=== PATIENT | female | born 1980 | race Caucasian/White ===

== ENCOUNTER 2018-11-30 08:35 | Outpatient (CLI) | payer BC, OTHER ==
[~2018-11-30] VITALS: Ht 160 cm; Wt 77.4 kg
[~2018-11-30 08:35] MED LIST: FERR27TA; PREN1TAB49
[2018-11-30 08:48] VITALS: Ht 160 cm; Wt 77.4 kg
--- NOTE | 2018-11-30 14:40 | PN ---
Triage Information Date/Time November 30, 2018 Reason for visit: Weeks of Gestation 32 weeks and 1 day /Para 4 para 3 Diabetes: none Hypertention: none Additional information 37-year-old with IUP at 32 weeks and 1 day presented with complaint of flu type symptoms. She complained of headache and congestion. Symptoms are started since last week. Increased. Reports headache, denies any cough. Denies any leaking of fluid, vaginal bleeding decreased movement or contractions. Reports pressure in her sinuses especially in the left side. Complaint of PND Objective Heart Rate: 130's Contractions: None Exam General appearance: Alert and oriented x4 does not appear to be in any acute distress Abdomen: Soft, gravid, fundal height consider gestational age HEENT: Tenderness over palpation of maxillary sinus more in the left side noted Evidence of rhinitis noted Lungs: Clear to auscultation bilaterally Oxygen saturation was normal limits NST: Category 1 BPP: 04/12 PAULINA: 8.8 Results/Medications Results 24 hrs Laboratory Tests Test 11/30/18 08:24 Urine Color YELLOW Urine Clarity CLEAR Urine pH 6.0 Urine Specific [place] 1.018 Urine Ketones NEGATIVE Urine Nitrite NEGATIVE Urine Bilirubin NEGATIVE Urine Urobilinogen NEGATIVE Urine Leukocyte Esterase NEGATIVE Urine Hemoglobin NEGATIVE Urine Glucose NEGATIVE Urine Total Protein NEGATIVE Imaging Results PROCEDURE: US OB biophysical profile. CLINICAL INDICATION: decreased movements, cough TECHNIQUE: Multiple sonographic images of the pelvis were obtained. The images were reviewed on a PACS workstation. COMPARISON: No prior studies are available for comparison. FINDINGS: There is a single live intrauterine gestation. Cardiac activity is present with 136 beats per minute. There is a vertex presentation. The placenta is anterior. There is no evidence of placental abruption. There is a normal amount of amniotic fluid with an PAULINA = 8.8 cm. Biophysical profile: movement 2/2 tone 2/2. breathing 2/2 PAULINA 2/2 Total 04/12 RPTAT: AA . IMPRESSION: Normal biophysical profile. Disposition: Discharge Assessment/Plan IUP at 32 weeks and 1 day URI symptoms as well as sinusitis. No evidence of labor or PPROM testing reassuring Patient will be discharged home Prescription with Benadryl, Tylenol, Robitussin, amoxicillin prescribed Strict labor precautions and kick count and follow-up within 24-48 hours with primary OB office discussed with patient Advised the patient to return to triage or emergency room if she has any fever, chills, worsening of her headache and symptoms or for any other concerns She verbalized understanding. All questions were answered to patient's best satisfaction ANNELIESE LONG MD Nov 30, 2018 14:40
== END 2018-11-30 09:50 | disposition home or self-care (01) ==
LOC: OBT 08:35 → L-D 08:35 → OBT 09:50
PROVIDERS: ATTEND Obstetrics & Gynecology
DX: O98.513 Other viral diseases complicating pregnancy, third trimester (principal); J06.9 Acute upper respiratory infection, unspecified; J32.9 Chronic sinusitis, unspecified; Z3A.32 32 weeks gestation of pregnancy
CPT/HCPCS: 76818; 81003; Z7500; G0463

== ENCOUNTER 2019-01-17 09:20 | Inpatient (IN) | payer OTHER ==
[~2019-01-17] VITALS: Ht 160 cm; Wt 79.6 kg
[2019-01-17] MEDS: LACTATED RINGER'S 1,000 ML IV SCH ×3 (10:28→16:52)
[2019-01-17] MEDS ORDERED: CARBOPROST 250 MCG INJ IM PRN ×2 (10:30→18:30)
[2019-01-17] MEDS ORDERED: MISOPROSTOL 200 MCG TAB PR PRN ×2 (10:30→18:30)
[2019-01-17] MEDS ORDERED: OXYTOCIN 30 UNITS/LR 500 ML IV PRN ×2 (10:30→18:30)
[2019-01-17] MEDS ORDERED: CEFAZOLIN 2 GM/50 ML (PMX) 50 ML IVPB SCH (10:30)
[2019-01-17] MEDS ORDERED: METHYLERGONOVINE 0.2 MG INJ IM PRN ×2 (10:30→18:30)
[2019-01-17 10:40] VITALS: Ht 160 cm; Wt 79.6 kg
[2019-01-17] MEDS ORDERED: OXYTOCIN 30 UNITS/LR 500 ML IV SCH ×2 (11:30→18:17)
--- NOTE | 2019-01-17 13:12 | PREOPHP ---
DATE OF ADMISSION: 01/17/2019 HISTORY OF PRESENT ILLNESS: This is a 38-year-old lady, 5, para 3 with 1 ectopic , EDC of 01/23/2019 at 39 and 2/7 weeks, admitted to labor and delivery area for repeat . She had care in my [place] office and the care was uneventful. PAST PERSONAL HISTORY: No history of diabetes, TB, asthma. ALLERGIES: NO ALLERGIES. SOCIAL HISTORY: The patient does not smoke. She does not drink. MEDICATIONS: She does not take any drugs except her: 1. Iron. 2. Vitamins. GYNECOLOGICAL HISTORY: She had menarche at the age of 14, every 28 days interval, 3 to 4 days durati on and moderate in amount. OBSTETRICAL HISTORY: Noncontributory. She is 5, para 3. She had 2 normal deliveries, the f irst 2; the last 1 was by . She had 1 ectopic . REVIEW OF SYSTEMS: CARDIOVASCULAR: No chest pains. RESPIRATORY: No cough. GASTROINTESTINAL: No diarrhea, no vomiting. GENITOURINARY: No dysuria. PHYSICAL EXAMINATION: GENERAL: Reveals a conscious, coherent lady and in no acute distress. VITAL SIGNS: Blood pressure 120/80, pulse rate 80 per minute, respirations 16 per minute. BREASTS, HEART AND LUNGS: Within normal limits. ABDOMEN: Soft. Fundic height 38 cm. heart tones 140 per minute. PELVIC: Revealed the cervix to be closed, station floating in cephalic presentation with the bag of water intact. EXTREMITIES: No pedal edema. ADMITTING DIAGNOSES: 1. A 39 and 2/7 weeks intrauterine . 2. One previous section. 3. Advanced maternal age. 4. The patient desires section. The patient was planned to have a repeat as mentioned. The procedures were explained to th e patient and she understood everything totally. The risks, benefits and alternatives were discussed with her as well. Dictated By: OSITO DUNCAN/UZMA Conf#: [id number] DID#: [id number]
[2019-01-17] MEDS ORDERED: ONDANSETRON 4 MG INJ IV STA (15:09)
--- NOTE | 2019-01-17 15:17 | PREAC ---
Date/Time of Note Date/Time of Note DATE: 01/17/19 TIME: 15:15 Anesthesia Eval and Record Evaluation Time Pre-Procedure Interview DATE: 01/17/19 TIME: 15:15 Age 38 Sex female NPO: 8 hrs Preoperative diagnosis PREVIOUS C SECTION Planned procedure REPEAT C SECTION Past Medical History Past Medical History: Includes : : (6), Para: (3), Gestational age: (39 WEEKS) Surgery & Anesthesia Issues No known issue Meds Anticoagulation: No Beta Jeanette within 24 hr: No Reason Beta Jeanette not given: Pt. not on B-Jeanette Reported Medications Ferrous Sulfate (Iron) 1 Tab Tablet 05/18/10 Vits W-Ca,Fe,Fa(<1MG) () 1 Tab Tablet 05/18/10 Current Medications Lactated Ringer's 1,000 ml @ 125 mls/hr Q8H IV Last administered on 01/17/19at 12:14; Admin Dose 125 MLS/HR; Start 01/17/19 at 10:16 Cefazolin Sodium/ Dextrose 50 ml @ 100 mls/hr ONCE IVPB ; Start 01/17/19 at 10:30 Oxytocin/Lactated Ringer's 500 ml @ 0 mls/hr ONCE PRN IV .VAGINAL BLEEDING; Start 01/17/19 at 10:30 Methylergonovine Maleate (Methergine) 0.2 mg ONCE PRN IM .VAGINAL BLEEDING; Start 01/17/19 at 10:30 Carboprost Tromethamine (Hemabate) 250 mcg ONCE PRN IM .VAGINAL BLEEDING; Start 01/17/19 at 10:30 Misoprostol (Cytotec) 1,000 mcg ONCE PRN [place] .VAGINAL BLEEDING; Start 01/17/19 at 10:30 Oxytocin/Lactated Ringer's 500 ml @ 125 mls/hr POST IV ; Start 01/17/19 at 11:30 Citric Acid/ Sodium Citrate (Bicitra) 30 ml ONCE ONCE PO ; Start 01/17/19 at 15:30; Stop 01/17/19 at 15:31 Meds reviewed: Yes Allergies Coded Allergies: No Known Allergy (Verified , 11/30/18) Allergies Reviewed: Yes Labs/Studies Labs Reviewed: Reviewed by anesthesiologist Result Diagram: 01/17/19 1033 Laboratory Tests 01/17/19 10:33 Blood Bank Test 01/17/19 10:33 Antibody Screen NEGATIVE Blood Type O POSITIVE Rh Immune Globulin Candidate NO test: N/A Pre-procedure Exam Airway: Adequate mouth opening, Adequate thyromental dist Mallampati: Mallampati II Teeth: Normal Lung: Normal Heart: Normal ASA Physical Status ASA physical status: 2 Emergency: None Planned Anesthetic Neuraxial: Spinal Planned Pain Management Sub-arachniod narcotics, Parenteral pain med Pre-operative Attestations Prior to commencing anesthesia and surgery, the patient was re-evaluated, there was verification of: *The patient's identity *The results of appropriate recent lab work and preoperative vital signs *The above evaluation not changing prior to induction *Anesthetic plan, risk benefits, alternative and complications discussed with patient/family; questions answered; patient/family understands, accepts and wishes to proceed. Rian Quiñones M.D. January 17, 2019 15:16
[2019-01-17] MEDS ORDERED: CITRIC ACID/NA CITRATE 30 ML CUP PO ONE (15:30)
[2019-01-17] MEDS ORDERED: OXYTOCIN 10 UNIT INJ ONE (17:09)
[2019-01-17] MEDS ORDERED: morphine SULFATE/PF (10 MG/10 ML) INJ ONE (17:09)
[2019-01-17] MEDS ORDERED: METOCLOPRAMIDE 10 MG INJ ONE (17:09)
[2019-01-17] MEDS ORDERED: FENTAnyl 50 MCG/ML VIAL ONE (17:09)
[2019-01-17] MEDS ORDERED: morphine 2 MG INJ IV PRN ×2 (18:00)
[2019-01-17] MEDS ORDERED: hydrALAzine 20 MG INJ IV PRN (18:00)
[2019-01-17] MEDS ORDERED: IPRATROPIUM (NEB) 0.5 MG/2.5 ML AMP HHN PRN (18:00)
[2019-01-17] MEDS ORDERED: LABETALOL HCL 20MG INJ IV PRN (18:00)
[2019-01-17] MEDS ORDERED: MIDAZOLAM 1 MG/ML 2 ML INJ IV PRN (18:00)
[2019-01-17] MEDS ORDERED: ONDANSETRON 4 MG INJ IV PRN ×2 (18:00)
[2019-01-17] MEDS ORDERED: NALOXONE (0.4 MG/ML) INJ IV PRN (18:00)
[2019-01-17] MEDS ORDERED: FENTAnyl 50 MCG/ML VIAL IV PRN ×3 (18:00)
[2019-01-17] MEDS ORDERED: TRIMETHOBENZAMIDE 100 MG/ML VIAL IM PRN ×2 (18:00)
[2019-01-17] MEDS ORDERED: OXYCODONE/ACETAMINOPHEN (5/325) TAB PO PRN ×2 (18:00)
[2019-01-17] MEDS ORDERED: DIPHENHYDRAMINE 50 MG INJ IV PRN ×2 (18:00)
[2019-01-17] MEDS ORDERED: NALBUPHINE HCL (10 MG/1 ML) INJ IV PRN (18:00)
[2019-01-17] MEDS ORDERED: MEPERIDINE 25 MG INJ IV PRN (18:00)
[2019-01-17] MEDS ORDERED: ALBUTEROL 0.083% (NEB) 2.5 MG/3 ML AMP HHN PRN (18:00)
[2019-01-17] MEDS ORDERED: EPHEDrine 25 MG/5 ML SYG IV PRN (18:00)
[2019-01-17] MEDS ORDERED: HYDROmorphONE 1 MG/5 ML IV SYRINGE IV PRN ×3 (18:00)
[2019-01-17] MEDS ORDERED: LACTATED RINGER'S 1,000 ML IV SCH (18:17)
--- NOTE | 2019-01-17 18:17 | OPPN ---
Date/Time of Note Date/Time of Note DATE: 01/17/19 TIME: 18:16 Operative Report Planned Procedure Procedure date January 17, 2019 Procedure(s) REPEAT CSECTION Performed by see signature line Environmental Health Safety Manager: LAUREN MOORE MD 2nd Environmental Health Safety Manager none Pre-procedure diagnosis 39 2/7 IUP PREVIOUS CSECTION [id number] Anesthesia Type: [id number] spinal Post-Procedure Post-procedure diagnosis 39 2/7 IUP PREVIOUS CSECTION Findings Live Baby BOY, Apgars 9 and 9, [id number] Estimated Blood Loss: 500 - 600 mls Specimen(s) none Grafts/Implant(s) PLACENTA Complication(s) none OSITO BARRIOS MD January 17, 2019 18:17
--- NOTE | 2019-01-17 18:20 | PAC ---
Date/Time of Note Date/Time of Note DATE: 01/17/19 TIME: 18:19 Post-Anesthesia Notes Post-Anesthesia Note Last documented vital signs hr 78 rr 14 bp 114/65 t 98.6 Activity: WNL Respiratory function: WNL Cardiovascular function: WNL Mental status: Baseline Pain reasonably controlled: Yes Hydration appropriate: Yes Nausea/Vomiting absent: Yes Rian Quiñones M.D. January 17, 2019 18:20
[2019-01-17] MEDS ORDERED: LANOLIN HPA 1 PKT TOP PRN (18:30)
[2019-01-17] MEDS ORDERED: HYDROCODONE/APAP (5/325) TAB PO PRN (18:30)
[2019-01-17] MEDS ORDERED: METHYLERGONOVINE 0.2 MG TAB PO PRN (18:30)
[2019-01-17] MEDS: KETOROLAC 30 MG INJ IV PRN (18:52)
--- NOTE | 2019-01-17 19:10 | OPR ---
DATE OF OPERATION: 01/17/2019 PREOPERATIVE DIAGNOSIS: A 39 and 2/7 weeks and with 1 previous , patient desires C -section. POSTOPERATIVE DIAGNOSIS: A 39 and 2/7 weeks and with 1 previous , patient desires . OPERATION PERFORMED: Repeat low transverse section. SURGEON: Osito Boyd MD HEALTH PROMOTION OFFICER: Dr. Briones ANESTHESIA: Spinal. ANESTHESIOLOGIST: Dr. Quiñones. OPERATION PERFORMED: Repeat low transverse section. OPERATIVE TECHNIQUE: Under spinal anesthesia, the patient was prepped and draped in the usual fashio n for abdominal surgery. After checking for the effect of the anesthesia, the previous Pfannenstiel scar was excised. A 10 cm skin incision was performed. The incision was carried from the skin up to the fascia. Upon opening the skin up to the fascia, small blood vessels were noted to be oozing and these were all cauterized. Fascia was opened transversely followed by splitting the muscles vertica l and the peritoneum vertically. Upon opening the abdominal cavity, the bladder blade was put in bob ce. A small mai was performed from the serosa up to the endometrium, and the mai was carried sidew ays with the aid of my 2 fingers. My left hand was inserted in the lower segment of the uterus and t he bag of water was ruptured. Clear fluid was noted. Baby's head was delivered with good fundal pre ssure. Baby's airways was quickly suctioned with amniotic fluid. There was 1 loop of cord around th e baby's neck that needs to be released prior to the delivery of the rest of the body of the baby. B erin's airways was quickly suctioned with amniotic fluid and after 30 seconds, the baby's cord was cla mped. Baby was handed to the NICU team. The placenta was delivered manually and complete. The uter us was exteriorized. The uterus was cleansed with wet lap sponge to make sure that no membrane s were left behind. After correct sponge count, the uterus was closed in the usual fashion using #1 chromic for the first layer, continuous locking suture was used followed by #1 chromic for the second layer, imbricating sutures were used. Bleeders were checked, and there was no bleeding noted. Afte r checking for any bleeders in which there were none, both tubes and ovaries were inspected. They we re healthy looking. The back of the uterus was checked for any hematoma and there was none noted. T hen, the uterus was put back to the pelvic cavity. Once again, uterine incision was checked for any bleeders and there was no bleeding noted. After correct sponge count, needle count and instrument co unt as confirmed by the quality technician and quilting machine helper, the abdomen was closed in the usual fashion using 0 Vicryl for the peritoneum, 0 Vicryl for the muscles, for the fascia 0 Vicryl continuous stitch was used followed by few [id number] sutures for the subcutaneous tissue, it was closed with 3-0 Vicr yl and the skin was closed with 3-0 Vicryl. Subcuticular suture was used. The patient tolerated the procedure well. Estimated blood loss about 600 mL. Vital signs were stable during and after the pr ocedure. She delivered a healthy baby boy, Apgars 9 and 9 at 1736 p.m., weighing 7 pounds 3 ounces, 3250 grams, 19-5 inches long. Dictated By: OSITO DUNCAN/UZMA Conf#: [id number] DID#: [id number]
[2019-01-17 20:30] VITALS: BP 109/59; PULSE 69; RESP 19
[2019-01-17] MEDS: SENNA/DOCUSATE NA (8.6MG/50MG) TAB PO SCH (21:00)
[2019-01-17 21:30] VITALS: BP 113/66; PULSE 62; RESP 18
[2019-01-18] VITALS: BP 114/65; PULSE 67; RESP 19
[2019-01-18 04:00] VITALS: BP 109/65; PULSE 64
[2019-01-18 08:00] VITALS: BP 95/53; PULSE 65; RESP 18
[2019-01-18] MEDS: SENNA/DOCUSATE NA (8.6MG/50MG) TAB PO SCH ×2 (09:29→19:53)
[2019-01-18] MEDS: KETOROLAC 30 MG INJ IV PRN (12:16)
[2019-01-18] MEDS: LACTATED RINGER'S 1,000 ML IV SCH ×2 (12:16→19:32)
[2019-01-18 12:20] VITALS: BP 100/58; PULSE 76; RESP 19
[2019-01-18 15:50] VITALS: BP 104/57; PULSE 67; RESP 19
--- NOTE | 2019-01-18 16:22 | PN ---
Date/Time of Note Date/Time of Note DATE: 01/18/19 TIME: 16:21 Assessment/Plan VTE Prophylaxis Risk score (from Ns)>0 risk: 3 SCD applied (from Ns): Yes Pharmacological prophylaxis: NA/contraindicated Pharm contraindication: low risk/ambulating Lines/Catheters IV [facility] Type (from [facility] Peripheral IV Assessment/Plan Assessment/Plan POSTCSECTION DAY 1 ORDERED ADVANCE DIET TOLERATED CBC ON 3RD POSTOP DAY Result Diagram: 01/18/19 0706 01/18/19 0706 Results 24hrs Laboratory Tests Test 01/18/19 06:25 01/18/19 07:06 Lab Scanned Report REFERENCE LAB White Blood Count 14.2 #H Red Blood Count 4.19 L Hemoglobin 11.9 L Hematocrit 36.3 L Mean Corpuscular Volume 86.6 Mean Corpuscular Hemoglobin 28.4 L Mean Corpuscular Hemoglobin Concent 32.8 Red Cell Distribution Width 13.9 Platelet Count 132 L Mean Platelet Volume 14.1 H Immature Granulocytes % 0.500 H Neutrophils % 81.1 H Lymphocytes % 11.4 L Monocytes % 6.0 Eosinophils % 0.7 Basophils % 0.3 Nucleated Red Blood Cells % 0.0 Immature Granulocytes # 0.070 H Neutrophils # 11.5 H Lymphocytes # 1.6 Monocytes # 0.9 Eosinophils # 0.1 Basophils # 0.0 Nucleated Red Blood Cells # 0.0 Sodium Level 135 Potassium Level 3.9 Chloride Level 106 Carbon Dioxide Level 26 Anion Gap 3 L Blood Urea Nitrogen 6 L Creatinine 0.48 Est Glomerular Filtrat Rate mL/min > 60 Glucose Level 68 L Calcium Level 8.3 L Subjective 24 Hr Interval Summary Free Text/Dictation POST CSECTION DAY 1 COMPLAIN OF INCISIONAL PAINS GOOD URINE OUTPUT PASSING GAS PER RECTUM NO BOWEL MOVEMENT YET Exam/Review of Systems Exam Vitals Vital Signs Date Temp Pulse Resp B/P (MAP) Pulse Ox O2 O2 Flow FiO2 Time Delivery Rate 01/18/19 97.8 67 19 104/57 100 Room Air 15:50 (73) Intake and Output 01/17/19 01/17/19 01/18/19 1414:59 22:59 06:59 IntakeIntake Total 1000 ml 2000 ml 750 ml OutputOutput Total 955 ml 1100 ml BalanceBalance 1000 ml 1045 ml -350 ml Exam VITAL SIGNS STABLE: YES AFEBRILE: YES BREAST NOT ENGORGED, NON-TENDER, NO APPRECIABLE MASS: YES LUNGS CLEAR, NO RALES, WHEEZES, RHONCHI: YES SINUS RHYTHM WITHOUT MURMUR: YES ABDOMEN: NON-TENDER FUNDUS: BELOW UMBILICUS BOWEL SOUNDS: PRESENT UTERUS: FIRM INCISION (CLEAN, DRY, AND INTACT): YES LOCHIA: LIGHT DEEP TENDON REFLEXES: 0 EXTREMITIES: NO CALF TENDERNESS EDEMA SCALE: NONE Results Results 24hrs Laboratory Tests Test 01/18/19 06:25 01/18/19 07:06 Lab Scanned Report REFERENCE LAB White Blood Count 14.2 #H Red Blood Count 4.19 L Hemoglobin 11.9 L Hematocrit 36.3 L Mean Corpuscular Volume 86.6 Mean Corpuscular Hemoglobin 28.4 L Mean Corpuscular Hemoglobin Concent 32.8 Red Cell Distribution Width 13.9 Platelet Count 132 L Mean Platelet Volume 14.1 H Immature Granulocytes % 0.500 H Neutrophils % 81.1 H Lymphocytes % 11.4 L Monocytes % 6.0 Eosinophils % 0.7 Basophils % 0.3 Nucleated Red Blood Cells % 0.0 Immature Granulocytes # 0.070 H Neutrophils # 11.5 H Lymphocytes # 1.6 Monocytes # 0.9 Eosinophils # 0.1 Basophils # 0.0 Nucleated Red Blood Cells # 0.0 Sodium Level 135 Potassium Level 3.9 Chloride Level 106 Carbon Dioxide Level 26 Anion Gap 3 L Blood Urea Nitrogen 6 L Creatinine 0.48 Est Glomerular Filtrat Rate mL/min > 60 Glucose Level 68 L Calcium Level 8.3 L Medications Medication Current Medications Lactated Ringer's 1,000 ml @ 125 mls/hr Q8H IV Last administered on 01/18/19at 12:16; Admin Dose 125 MLS/HR; Start 01/17/19 at 10:16 Morphine Sulfate (morphine) 2 mg Q2H PRN IV .PAIN 1-5; Start 01/17/19 at 18:00 Morphine Sulfate (morphine) 4 mg Q2H PRN IV .PAIN 6-10; Start 01/17/19 at 18:00 Ketorolac Tromethamine (Toradol) 30 mg Q6H PRN IV .PAIN 6-10 Last administered on 01/18/19at 12:16; Admin Dose 30 MG; Start 01/17/19 at 18:00; Stop 01/20/19 at 17:59 Diphenhydramine HCl (Benadryl) 25 mg Q4H PRN IV .PRURITUS Last administered on 01/18/19at 05:41; Admin Dose 25 MG; Start 01/17/19 at 18:00 Nalbuphine HCl (Nubain) 10 mg Q4H PRN IV .PRURITUS; Start 01/17/19 at 18:00 Ondansetron HCl (Zofran Inj) 4 mg Q6H PRN IV .NAUSEA/VOMITING; Start 01/17/19 at 18:00 Trimethobenzamide HCl (Tigan) 200 mg Q6H PRN IM .NAUSEA/VOMITING; Start 01/17/19 at 18:00 Naloxone HCl (Narcan) 0.2 mg Q2M PRN IV .RESP RATE; Start 01/17/19 at 18:00 Methylergonovine Maleate (Methergine) 0.2 mg Q6H PRN PO .VAGINAL BLEEDING; Start 01/17/19 at 18:30 Acetaminophen/ Hydrocodone Bitart ([place] (5/325)) 1 tab Q4H PRN PO MODERATE PAIN LEVEL 4-6; Start 01/17/19 at 18:30 Acetaminophen/ Hydrocodone Bitart ([place] (5/325)) 2 tab Q4H PRN PO SEVERE PAIN LEVEL 7-10; Start 01/17/19 at 18:30 Ibuprofen (Motrin) 800 mg Q8 PRN PO MILD PAIN LEVEL 1-3; Start 01/17/19 at 18:30 Simethicone (Mylicon) 160 mg Q8H PRN PO .GAS Last administered on 01/18/19at 09:30; Admin Dose 160 MG; Start 01/17/19 at 18:30 Senna/Docusate Sodium (Senokot-S) 1 tab BID PO Last administered on 01/18/19 09:29; Admin Dose 1 TAB; Start 01/17/19 at 21:00 Lanolin (Lanolin Hpa) 1 applic BEDSIDE MEDICATION PRN TOP .NIPPLES Last administered on 01/18/19at 09:29; Admin Dose 1 APPLIC; Start 01/17/19 at 18:30 Diphtheria/ Tetanus/Acell Pertussis (Adacel) 0.5 ml ONCE ONCE IM* ; Start 01/20/19 at 09:00; Stop 01/20/19 at 09:01 Measles/Mumps/ Rubella Vaccine Live (Mmr Ii Vaccine) 0.5 ml ONCE ONCE SC* ; Start 01/20/19 at 09:00; Stop 01/20/19 at 09:01 Oxytocin/Lactated Ringer's 500 ml @ 0 mls/hr ONCE PRN IV .VAGINAL BLEEDING; Start 01/17/19 at 18:30 Methylergonovine Maleate (Methergine) 0.2 mg ONCE PRN IM .VAGINAL BLEEDING; Start 01/17/19 at 18:30 Carboprost Tromethamine (Hemabate) 250 mcg ONCE PRN IM .VAGINAL BLEEDING; Start 01/17/19 at 18:30 Misoprostol (Cytotec) 1,000 mcg ONCE PRN [place] .VAGINAL BLEEDING; Start 01/17/19 at 18:30 OSITO BARRIOS MD January 18, 2019 16:22
[2019-01-18 19:30] VITALS: BP 114/66; PULSE 72; RESP 18
[2019-01-18] MEDS: IBUPROFEN 800 MG TAB PO PRN (19:53)
[2019-01-19] MEDS: HYDROCODONE/APAP (5/325) TAB PO PRN (02:07)
[2019-01-19] MEDS: LACTATED RINGER'S 1,000 ML IV SCH (02:16)
[2019-01-19 03:30] VITALS: BP 119/56; PULSE 63; RESP 19
[2019-01-19] MEDS: IBUPROFEN 800 MG TAB PO PRN ×2 (05:30→16:41)
[2019-01-19 08:00] VITALS: BP 109/60; PULSE 64; RESP 19
[2019-01-19] MEDS: SENNA/DOCUSATE NA (8.6MG/50MG) TAB PO SCH ×2 (08:44→21:58)
[2019-01-19 16:00] VITALS: BP 117/65; PULSE 69; RESP 18
--- NOTE | 2019-01-19 19:36 | PN ---
Date/Time of Note Date/Time of Note DATE: 01/19/19 TIME: 19:35 Assessment/Plan VTE Prophylaxis Risk score (from Nsg)>0 risk: 4 SCD applied (from Nsg): No SCD contraindicated: low risk/ambulating Pharmacological prophylaxis: NA/contraindicated Pharm contraindication: low risk/ambulating Lines/Catheters IV Catheter Type (from Nrsg): Peripheral IV Assessment/Plan Assessment/Plan POST CSECTION DAY 2 HOME TOMORROW CBC TOMORROW COUNSELED INSTRUCTED PRESCRIPTION GIVEN FOR PAIN RETURN TO CLINIC IN 2 WEEKS CALL OFFICE IF THERE IS ANY PROBLEM OR CONCERN CONTINUE WITH VITAMINS OD AND FERROUS SULFATE 325MG PO TID DIET ADVISED Result Diagram: 01/18/1970501/18/1906 Results 24hrs Laboratory Tests Test 01/19/19 11:07 Lab Scanned Report REFERENCE LAB Subjective 24 Hr Interval Summary Free Text/Dictation POST CSECTION DAY 2 LITTLE BOWEL MOVEMENT GOOD URINE OUTPUT FEELS LESS INCISIONAL PAINS Exam/Review of Systems Exam Vitals Vital Signs Date Temp Pulse Resp B/P (MAP) Pulse Ox O2 O2 Flow FiO2 Time Delivery Rate 01/19/19 97.9 69 18 117/65 Room Air 16:00 (82) 01/18/19 100 15:50 Intake and Output 01/18/19 01/18/19 01/19/19 1515:00 23:00 07:00 IntakeIntake Total 3370 ml 1350 ml OutputOutput Total 3650 ml 2900 ml BalanceBalance -280 ml -1550 ml Exam VITAL SIGNS STABLE: YES AFEBRILE: YES BREAST NOT ENGORGED, NON-TENDER, NO APPRECIABLE MASS: YES LUNGS CLEAR, NO RALES, WHEEZES, RHONCHI: YES SINUS RHYTHM WITHOUT MURMUR: YES ABDOMEN: NON-TENDER FUNDUS: BELOW UMBILICUS BOWEL SOUNDS: PRESENT UTERUS: FIRM INCISION (CLEAN, DRY, AND INTACT): YES LOCHIA: LIGHT DEEP TENDON REFLEXES: 0 EXTREMITIES: NO CALF TENDERNESS EDEMA SCALE: NONE Results Results 24hrs Laboratory Tests Test 01/19/19 11:07 Lab Scanned Report REFERENCE LAB Medications Medication Current Medications Morphine Sulfate (morphine) 2 mg Q2H PRN IV .PAIN 1-5; Start 01/17/19 at 18:00 Morphine Sulfate (morphine) 4 mg Q2H PRN IV .PAIN 6-10; Start 01/17/19 at 18:00 Ketorolac Tromethamine (Toradol) 30 mg Q6H PRN IV .PAIN 6-10 Last administered on 01/18/19 12:16; Admin Dose 30 MG; Start 01/17/19 at 18:00; Stop 01/20/19 at 17:59 Diphenhydramine HCl (Benadryl) 25 mg Q4H PRN IV .PRURITUS Last administered on 01/18/19 05:41; Admin Dose 25 MG; Start 01/17/19 at 18:00 Nalbuphine HCl (Nubain) 10 mg Q4H PRN IV .PRURITUS; Start 01/17/19 at 18:00 Ondansetron HCl (Zofran Inj) 4 mg Q6H PRN IV .NAUSEA/VOMITING; Start 01/17/19 at 18:00 Trimethobenzamide HCl (Tigan) 200 mg Q6H PRN IM .NAUSEA/VOMITING; Start 01/17/19 at 18:00 Naloxone HCl (Narcan) 0.2 mg Q2M PRN IV .RESP RATE; Start 01/17/19 at 18:00 Methylergonovine Maleate (Methergine) 0.2 mg Q6H PRN PO .VAGINAL BLEEDING; Start 01/17/19 at 18:30 Acetaminophen/ Hydrocodone Bitart ([place] (5/325)) 1 tab Q4H PRN PO MODERATE PAIN LEVEL 4-6 Last administered on 01/19/19 02:07; Admin Dose 1 TAB; Start 01/17/19 at 18:30 Acetaminophen/ Hydrocodone Bitart ([place] (5/325)) 2 tab Q4H PRN PO SEVERE PAIN LEVEL 7-10 Last administered on 01/19/19 12:56; Admin Dose 2 TAB; Start 01/17/19 at 18:30 Ibuprofen (Motrin) 800 mg Q8 PRN PO MILD PAIN LEVEL 1-3 Last administered on 01/19/19 16:41; Admin Dose 800 MG; Start 01/17/19 at 18:30 Simethicone (Mylicon) 160 mg Q8H PRN PO .GAS Last administered on 01/18/19 09:30; Admin Dose 160 MG; Start 01/17/19 at 18:30 Senna/Docusate Sodium (Senokot-S) 1 tab BID PO Last administered on 5/17/19at 08:44; Admin Dose 1 TAB; Start 01/17/19 at 21:00 Lanolin (Lanolin Hpa) 1 applic BEDSIDE MEDICATION PRN TOP .NIPPLES Last administered on 01/18/19at 09:29; Admin Dose 1 APPLIC; Start 01/17/19 at 18:30 Diphtheria/ Tetanus/Acell Pertussis (Adacel) 0.5 ml ONCE ONCE IM* ; Start 01/20/19 at 09:00; Stop 01/20/19 at 09:01 Measles/Mumps/ Rubella Vaccine Live (Mmr Ii Vaccine) 0.5 ml ONCE ONCE SC* ; Start 01/20/19 at 09:00; Stop 01/20/19 at 09:01 Oxytocin/Lactated Ringer's 500 ml @ 0 mls/hr ONCE PRN IV .VAGINAL BLEEDING; Start 01/17/19 at 18:30 Methylergonovine Maleate (Methergine) 0.2 mg ONCE PRN IM .VAGINAL BLEEDING; Start 01/17/19 at 18:30 Carboprost Tromethamine (Hemabate) 250 mcg ONCE PRN IM .VAGINAL BLEEDING; Start 01/17/19 at 18:30 Misoprostol (Cytotec) 1,000 mcg ONCE PRN [place] .VAGINAL BLEEDING; Start 01/17/19 at 18:30 OSITO BARRIOS MD January 19, 2019 19:36
[2019-01-19 20:00] VITALS: BP 99/56; PULSE 58; RESP 18
[2019-01-19] MEDS ORDERED: MAGNESIUM HYDROXIDE 30ML CUP PO ONE (20:00)
[2019-01-19] MEDS ORDERED: BISACODYL 10 MG SUPP PR ONE (20:00)
[2019-01-20] MEDS: IBUPROFEN 800 MG TAB PO PRN ×2 (01:07→11:41)
[2019-01-20 03:48] VITALS: BP 117/61; PULSE 57; RESP 17
[2019-01-20] MEDS: HYDROCODONE/APAP (5/325) TAB PO PRN (05:32)
[2019-01-20] MEDS ORDERED: MAGNESIUM HYDROXIDE 30ML CUP PO ONE (06:00)
[2019-01-20] MEDS ORDERED: BISACODYL 10 MG SUPP PR ONE (06:00)
[2019-01-20 07:00] VITALS: BP 104/73; PULSE 61; RESP 18
[2019-01-20] MEDS ORDERED: DIPHTH/TET/ACEL PERTUSS (ADULT) 0.5 ML VIAL IM* ONE (09:00)
[2019-01-20] MEDS ORDERED: MEASLES,MUMPS,RUBELLA VACCINE INJ SC* ONE (09:00)
[2019-01-20] MEDS: SENNA/DOCUSATE NA (8.6MG/50MG) TAB PO SCH (09:23)
--- NOTE | 2019-01-21 15:19 | DELSUM ---
Delivery Summary A-C Datetime Report Generated by CPN: 01/21/2019 15:19 DELIVERY PERSONNEL [facility] [employer] Floorperson: Aguilera, [place] MATERNAL INFORMATION Delivery Anesthesia: Spinal Medications in Delivery: see anes. records Delivery QBL (ml): 500 Placenta Cultured: No Maternal Complications: None RN Comments: pericardial effusion + Right to Left Disporportion of atrial ventrical LABOR SUMMARY EDC: 01/24/2019 00:00 No. Babies in Womb: 1 Attempted: No Labor Anesthesia: Intrathecal LABOR INFORMATION Reason for Induction: Not Applicable Oxytocin: N/A Group B Beta Strep: Negative Antibiotics # of Doses: 1 Antibiotics Time of Last Dose: 01/17/2019 17:15 Steroids Given: None Reason Steroids Not Administered: Not Applicable MEMBRANES Membranes Rupture Method: Artificial Rupture of Membranes: 01/17/2019 17:35 Length of Rupture (hr): 0.02 Amniotic Fluid Color: Clear Amniotic Fluid Amount: Small Amniotic Fluid Odor: Normal STAGES OF LABOR Stage 3 hr: 0 Stage 3 min: 2 CSECTION DELIVERY Primary Indication: Repeat Elective Secondary Indication: N/A CSection Urgency: Elective CSection Incidence: Repeat Labor: No Labor Elective: Elective CSection Incision: Lower Uterine Transverse BABY A INFORMATION Delivery Date/Time: 01/17/2019 17:36 Method of Delivery: Born in Route : No : N/A Forceps: N/A Vacuum Extraction: N/A Shoulder Dystocia : No SHOULDER DYSTOCIA BABY A Infant Delivery Date/Time: 01/17/2019 17:36 PRESENTATION/POSITION BABY A Presentation: Cephalic Cephalic Presentation: Vertex Vertex Position: Left Occipital Anterior Breech Presentation: N/A PLACENTA INFORMATION BABY A Placenta Delivery Time : 01/17/2019 17:38 Placenta Method of Delivery: Manual Removal Placenta Status: Delivered SCORES BABY A Heart Rate 1 min: >100 bpm Resp Effort 1 min: Good Cry Reflex Irritability 1 min: Cough/Sneeze/Pulls Away Muscle Tone 1 min: Active Motion Color 1 min: Body Dietrich, Extremit Blue Resuscitation Effort 1 min: Tactile Stimulation SCORE 1 MIN: 9 Heart Rate 5 min: >100 bpm Resp Effort 5 min: Good Cry Reflex Irritability 5 min: Cough/Sneeze/Pulls Away Muscle Tone 5 min: Active Motion Color 5 min: Body Dietrich, Extremit Blue Resuscitation Effort 5 min: Tactile Stimulation SCORE 5 MIN: 9 INFORMATION BABY A Gestational Age at Delivery: 39.0 Gestational Status: Full Term- 39- 40.6 Weeks Outcome : Liveborn Infant Condition : Stable Infant Sex: Male IDENTIFICATION/MEDS BABY A ID Band Number: [id number] ID Band Location: Right Leg; Left Arm Sensor Number: [id number] Vitamin K Given : Not Given Erythromycin Given: Not Given WEIGHT/LENGTH BABY A Infant Birthweight (gm): 3250 Weight (lb): 7 Infant Weight (oz): 3 Length (in): 19.50 Length (cm): 49.53 CORD INFORMATION BABY A No. Cord Vessels: 3 Nuchal Cord : Around Neck x1, Loose Cord Blood Taken: Yes Suction: Mouth; Nose ASSESSMENT BABY A Complications: None Physical Findings at Delivery: Within Normal Limits Infant Respirations: Appears Normal Rigging And Controls Aircraft Mechanic/ALS Called : No Infant Care By: RT/ANTHONY Transferred To: Remains with Mother
== END 2019-01-20 15:19 | disposition home or self-care (01) | DRG 788 ==
LOC: L-D 09:20 → PP1 20:27
PROVIDERS: ADMIT Obstetrics & Gynecology; ATTEND Obstetrics & Gynecology
PROC: 10D00Z1 Extraction of Products of Conception, Low, Open Approach (ICD-10-PCS; principal; 2019-01-17 15:30)
DX: O34.211 Maternal care for low transverse scar from previous cesarean delivery (principal); Z3A.39 39 weeks gestation of pregnancy; Z37.0 Single live birth
CPT/HCPCS: 80048; 80307; 85025; 85610; 85730; 86592; 86850; 86900; 86901; 99464; J0690; J1200; J1885; J2270; J2274; J2405; J2590; J2765; J3010; J7120